=== PATIENT | male | born 1980 | race Two or more races ===

== ENCOUNTER 2017-01-25 04:33 | Emergency (ER) | payer OTHER ==
[2017-01-25] MEDS ORDERED: Ondansetron 4 MG/2 ML SDV IVPUSH ONE (04:40)
[2017-01-25] MEDS ORDERED: Sodium Chloride 0.9% 2.5 ML Syringe FLUSH PRN (04:40)
[2017-01-25] MEDS ORDERED: Sodium Chloride 0.9% 1,000 ML IV ONE (04:40)
[2017-01-25] MEDS ORDERED: Pantoprazole 40 MG Vial IVPUSH ONE (04:40)
[2017-01-25] MEDS ORDERED: Sodium Chloride 0.9% 10 ML Syringe FLUSH PRN (04:40)
--- NOTE | 2017-01-25 04:46 | EDM.PDOC ---
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 He follows with a doctor at the OR and says he is currently in the process of having a large workup to try to determine why he has persistent vomiting inability to eat very much food and inability to move his bowels without taking an enema. The patient presents via EMS not because of any of these symptomatologies because these are all chronic and old but he said that he had an episode of vomiting today where there was bright red blood and he has seen small amounts of bright red blood in his vomitus but never a large amount and this worried him. He was told that he had gastric irritation in the past and that he may have gastroparesis but from what he is saying there is been no definitive diagnosis for his chronic vomiting problem times many years. Patient here in the ED says he still has nausea and he says he is able to eat but yesterday multiple times a day because he always has vomiting and in order to keep some calories and he has to eat frequently. Again this is not new or different. Currently he is telling me he doesn't have any new abdominal pain that is different from his prior he has no chest pain or shortness of breath and his stools have not been black or bloody. Review of systems: As per history of present illness and below otherwise all systems reviewed and negative. Past medical history: As per history of present illness and as reviewed below otherwise noncontributory. Surgical history: As per history of present illness and as reviewed below otherwise noncontributory. Social history: No reported history of drug or alcohol abuse. Family history: As per history of present illness and as reviewed below otherwise noncontributory. Physical exam: Gen.: Well-developed well-nourished man who is nontoxic and speaking clearly in the ED. Vital signs are noted by me. HEENT: Atraumatic, normocephalic, pupils reactive, negative for conjunctival pallor or scleral icterus, mucous membranes moist, throat clear, neck supple, nontender, trachea midline. Lungs: Clear to auscultation, breath sounds equal bilaterally, chest nontender. Heart: S1S2, regular rate and rhythm no overt murmurs Abdomen: Soft, nondistended, no sounds are slightly hypoactive and there is some diffuse upper abdominal tenderness and voluntary guarding without involuntary guarding or rebound. Negative for masses or hepatosplenomegaly. Pelvis: Stable nontender. Genitourinary: Deferred. Rectal: Deferred. Extremities: Atraumatic, negative for cords or calf pain. Neurovascular unremarkable. Neuro: Awake, alert, oriented. . Motor and sensory are at baseline for this patient for his conversation with me Exam nonfocal. Diagnostics: CBC CMP INR amylase lipase abdominal x-rays Therapeutics: IV ,IV fluids Zofran and Protonix 0500: Case is endorsed to Dr. Alcantara to follow-up TESTING results and reevaluate the patient for disposition. Impression: Chronic history of vomiting with hemetemesis Definitive disposition and diagnosis as appropriate pending reevaluation and review of above. - Related Data Allergies Allergy/AdvReac Type Severity Reaction Status Date / Time acetaminophen [From Tylenol] Allergy gastric Verified 03/15/15 09:46 upset adhesive Allergy Blisters Verified 01/25/17 04:53 fentanyl Allergy "skin Verified 03/15/15 09:46 bleeds" ibuprofen Allergy "skin Verified 03/15/15 09:46 bleeds" morphine Allergy gastric Verified 03/15/15 09:46 upset NSAIDS (Non-Steroidal Allergy Abdominal Verified 01/25/17 04:44 Anti-Inflamma Pain Home Meds: Home Meds Cyclobenzaprine [Flexeril] 10 mg PO TID 03/15/15 [History] Pantoprazole Sodium 40 mg PO BID 03/15/15 [History] oxyCODONE 20 mg PO Q4HR PRN 03/15/15 [History] Lubiprostone [Amitiza] 0 mg PO DAILY 05/13/15 [History] Past Medical History HEENT History: Reports: Impaired Vision Other HEENT History: wears glasses, has upper bridge Cardiovascular History: Reports: None Respiratory History: Reports: None Gastrointestinal History: Reports: GERD, Other (See Below) Other Gastrointestinal History: gastroparesis Genitourinary History: Reports: None Musculoskeletal History: Reports: Arthritis, Back Pain, Chronic, Fracture, Fibromyalgia Other Musculoskeletal History: 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; rhabdomyolysis; muscular atrophy; sacroilitis; "MBS (thoracic)" Neurological History: Reports: Headaches, Chronic, Other (See Below) Other Neuro History: 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", "full body neuropathy" Psychiatric History: Reports: Bipolar, Depression Other Psychiatric History: bipolar and major depressive disorder Endocrine/Metabolic History: Reports: Other (See Below) Other Endocrine/Metabolic History: states has hypothyroidism as a child but outgrew it Hematologic History: Reports: None Immunologic History: Reports: None Oncologic (Cancer) History: Reports: None Dermatologic History: Reports: None - Past Surgical History HEENT Surgical History: Reports: Oral Surgery Musculoskeletal Surgical History: Reports: Carpal Tunnel, Other (See Below) Social & Family History - Tobacco Use Smoking Status *Q: Former Smoker Years of Tobacco use: 23 Used Tobacco, but Quit: Yes - Recreational Drug Use Recreational Drug Use: No Drug Use in Last 12 Months: No ED ROS GENERAL - Review of Systems Review Of Systems: ROS reveals no pertinent complaints other than HPI. ED EXAM, GENERAL - Physical Exam Exam: See Below (See dictation) Course - Vital Signs Last Recorded V/S: Last Vital Signs Temp 97.8 F 01/25/17 07:33 Pulse 80 01/25/17 07:33 Resp 16 01/25/17 07:33 BP 121/91 H 01/25/17 07:33 Pulse Ox 97 01/25/17 07:33 - Orders/Labs/Meds Orders: Active Orders 24 hr Category Date Time Status Abdomen Pelvis w Cont [CT] Stat Exams 01/25/17 05:13 Taken Sodium Chloride 0.9% [Saline Flush] Med 01/25/17 04:40 Active 10 ml FLUSH ASDIRECTED PRN Sodium Chloride 0.9% [Saline Flush] Med 01/25/17 04:40 Active 2.5 ml FLUSH ASDIRECTED PRN Saline Lock Insert [OM.PC] Stat Oth 01/25/17 04:40 Ordered Medication Orders Sodium Chloride (Saline Flush) 10 ml FLUSH ASDIRECTED PRN PRN Reason: Keep Vein Open Last Admin: 01/25/17 04:52 Dose: 10 ml Sodium Chloride (Saline Flush) 2.5 ml FLUSH ASDIRECTED PRN PRN Reason: Keep Vein Open Last Admin: 01/25/17 04:52 Dose: 2.5 ml Labs: Laboratory Tests 01/25/17 01/25/17 01/25/17 Range/Units 04:59 04:59 04:59 WBC 11.01 H (4.0-11.0) K/uL RBC 4.87 (4.50-5.90) M/uL Hgb 13.1 (13.0-17.0) g/dL Hct 38.5 (38.0-50.0) % MCV 79.1 L (80.0-98.0) fL MCH 26.9 L (27.0-32.0) pg MCHC 34.0 (31.0-37.0) g/dL RDW Std Deviation 38.3 (28.0-62.0) fl RDW Coeff of Jamey 14 (11.0-15.0) % Plt Count 255 (150-400) K/uL MPV 9.80 (7.40-12.00) fL Neut % (Auto) 39.2 L (48.0-80.0) % Lymph % (Auto) 51.7 H (16.0-40.0) % [place] % (Auto) 6.1 (0.0-15.0) % Eos % (Auto) 2.5 (0.0-7.0) % Baso % (Auto) 0.5 (0.0-1.5) % Neut # (Auto) 4.3 (1.4-5.7) K/uL Lymph # (Auto) 5.7 H (0.6-2.4) K/uL [place] # (Auto) 0.7 (0.0-0.8) K/uL Eos # (Auto) 0.3 (0.0-0.7) K/uL Baso # (Auto) 0.1 (0.0-0.1) K/uL Nucleated RBC % 0.0 /100WBC Nucleated RBCs # 0 K/uL INR 0.98 (0.86-1.11) Sodium 141 (136-146) mmol/L Potassium 3.7 (3.5-5.1) mmol/L Chloride 107 (98-110) mmol/L Carbon Dioxide 24 (21-31) mmol/L BUN 11 (6.0-23.0) mg/dL Creatinine 1.1 (0.6-1.5) mg/dL Est Cr Clr Drug Dosing 96.98 mL/min Estimated GFR (MDRD) > 60.0 ml/min Glucose 91 (60-110) mg/dL Calcium 9.6 (8.8-10.8) mg/dL Total Bilirubin 0.4 (0.1-1.5) mg/dL AST 32 (5-40) IU/L ALT 44 (8-54) IU/L Alkaline Phosphatase 68 (40-150) Total Protein 7.7 (6.0-8.0) g/dL Albumin 4.4 (3.5-5.0) g/dL Globulin 3.3 (2.0-3.5) g/dL Albumin/Globulin Ratio 1.3 (1.3-2.8) Amylase 114 H (10-90) U/L Lipase 11 (7-80) U/L Urine Color Urine Appearance Urine pH (5.0-8.0) Ur Specific [place] (1.001-1.035) Urine Protein (NEGATIVE) mg/dL Urine Glucose (UA) (NEGATIVE) mg/dL Urine Ketones (NEGATIVE) mg/dL Urine Occult Blood (NEGATIVE) Urine Nitrite (NEGATIVE) Urine Bilirubin (NEGATIVE) Urine Urobilinogen (<2.0) EU/dL Ur Leukocyte Esterase (NEGATIVE) Urine RBC (0-2/HPF) Urine WBC (0-5/HPF) Ur Epithelial Cells (NONE-FEW) Urine Bacteria (NEGATIVE) Blood Type Antibody Screen 01/25/17 01/25/17 Range/Units 04:59 07:26 WBC (4.0-11.0) K/uL RBC (4.50-5.90) M/uL Hgb (13.0-17.0) g/dL Hct (38.0-50.0) % MCV (80.0-98.0) fL MCH (27.0-32.0) pg MCHC (31.0-37.0) g/dL RDW Std Deviation (28.0-62.0) fl RDW Coeff of Jamey (11.0-15.0) % Plt Count (150-400) K/uL MPV (7.40-12.00) fL Neut % (Auto) (48.0-80.0) % Lymph % (Auto) (16.0-40.0) % [place] % (Auto) (0.0-15.0) % Eos % (Auto) (0.0-7.0) % Baso % (Auto) (0.0-1.5) % Neut # (Auto) (1.4-5.7) K/uL Lymph # (Auto) (0.6-2.4) K/uL [place] # (Auto) (0.0-0.8) K/uL Eos # (Auto) (0.0-0.7) K/uL Baso # (Auto) (0.0-0.1) K/uL Nucleated RBC % /100WBC Nucleated RBCs # K/uL INR (0.86-1.11) Sodium (136-146) mmol/L Potassium (3.5-5.1) mmol/L Chloride (98-110) mmol/L Carbon Dioxide (21-31) mmol/L BUN (6.0-23.0) mg/dL Creatinine (0.6-1.5) mg/dL Est Cr Clr Drug Dosing mL/min Estimated GFR (MDRD) ml/min Glucose (60-110) mg/dL Calcium (8.8-10.8) mg/dL Total Bilirubin (0.1-1.5) mg/dL AST (5-40) IU/L ALT (8-54) IU/L Alkaline Phosphatase (40-150) Total Protein (6.0-8.0) g/dL Albumin (3.5-5.0) g/dL Globulin (2.0-3.5) g/dL Albumin/Globulin Ratio (1.3-2.8) Amylase (10-90) U/L Lipase (7-80) U/L Urine Color YELLOW Urine Appearance CLEAR Urine pH 7.5 (5.0-8.0) Ur Specific [place] <= 1.005 (1.001-1.035) Urine Protein NEGATIVE (NEGATIVE) mg/dL Urine Glucose (UA) NEGATIVE (NEGATIVE) mg/dL Urine Ketones NEGATIVE (NEGATIVE) mg/dL Urine Occult Blood NEGATIVE (NEGATIVE) Urine Nitrite NEGATIVE (NEGATIVE) Urine Bilirubin NEGATIVE (NEGATIVE) Urine Urobilinogen 0.2 (<2.0) EU/dL Ur Leukocyte Esterase NEGATIVE (NEGATIVE) Urine RBC 0-1 (0-2/HPF) Urine WBC 0-1 (0-5/HPF) Ur Epithelial Cells RARE (NONE-FEW) Urine Bacteria RARE (NEGATIVE) Blood Type B POSITIVE Antibody Screen NEGATIVE Meds: Medications Generic Name Dose Route Start Last Admin Trade Name Freq PRN Reason Stop Dose Admin Sodium Chloride 10 ml 01/25/17 04:40 01/25/17 04:52 Saline Flush FLUSH 10 ml ASDIRECTED PRN Administration Keep Vein Open Sodium Chloride 2.5 ml 01/25/17 04:40 01/25/17 04:52 Saline Flush FLUSH 2.5 ml ASDIRECTED PRN Administration Keep Vein Open Discontinued Medications Generic Name Dose Route Start Last Admin Trade Name Freq PRN Reason Stop Dose Admin Hydromorphone HCl 1 mg 01/25/17 05:02 01/25/17 05:18 Dilaudid IM 01/25/17 05:03 Not Given ONETIME ONE Hydromorphone HCl 1 mg 01/25/17 05:02 01/25/17 05:18 Dilaudid IVPUSH 01/25/17 05:03 1 mg ONETIME ONE Administration Sodium Chloride 1,000 mls @ 999 mls/hr 01/25/17 04:40 01/25/17 04:52 Normal Saline IV 01/25/17 05:40 999 mls/hr STAT ONE Administration Iopamidol 100 ml 01/25/17 05:43 01/25/17 05:44 Isovue Multipack-370 (76%) IVPUSH 01/25/17 05:44 100 ml ONETIME STA Administration Ondansetron HCl 4 mg 01/25/17 04:40 01/25/17 04:53 Zofran IVPUSH 01/25/17 04:41 4 mg ONETIME ONE Administration Pantoprazole Sodium 80 mg 01/25/17 04:40 01/25/17 04:54 Protonix Iv IVPUSH 01/25/17 04:41 80 mg .BOLUS ONE Administration Departure - Departure Disposition: Home, Self-Care 01 Clinical Impression: Vomiting - Discharge Information Referrals: PCP,None [Primary Care Provider] - Forms: ED Department Discharge Additional Instructions: Zofran 8 mg ODT by mouth every 8 when necessary #30 no refill Continue current home medications Return if symptoms persist or worsen or new concerning symptoms develop Follow-up with OB as scheduled sooner as needed The following information is given to patients seen in the emergency department who are being discharged to home. This information is to outline your options for follow-up care. We provide all patients seen in our emergency department with a follow-up referral. The need for follow-up, as well as the timing and circumstances, are variable depending upon the specifics of your emergency department visit. If you don't have a primary care physician on staff, we will provide you with a referral. We always advise you to contact your personal physician following an emergency department visit to inform them of the circumstance of the visit and for follow-up with them and/or the need for any referrals to a consulting specialist. The emergency department will also refer you to a specialist when appropriate. This referral assures that you have the opportunity for follow-up care with a specialist. All of these measure are taken in an effort to provide you with optimal care, which includes your follow-up. Under all circumstances we always encourage you to contact your private physician who remains a resource for coordinating your care. When calling for follow-up care, please make the office aware that this follow-up is from your recent emergency room visit. If for any reason you are refused follow-up, please contact the [facility] emergency department at and asked to speak to the emergency department charge nurse. - My Orders Last 24 Hours: My Active Orders 01/25/17 05:13 Abdomen Pelvis w Cont [CT] Stat - Assessment/Plan Last 24 Hours: My Active Orders 01/25/17 05:13 Abdomen Pelvis w Cont [CT] Stat <Lee Alcantara - Last Filed: 01/25/17 08:09> ED HPI GENERAL MEDICAL PROBLEM - History of Present Illness INITIAL COMMENTS - FREE TEXT/NARRATIVE: I have seen and Examined the patient and agree with the findings above and history as provided by the patient is consistent with Dr. Bolivar's history. Patient has no fever nausea vomiting diarrhea constipation chest pain shortness breath headache dizziness palpitation no bowel or urine symptoms at this time after prolonged stay in the ER for evaluation. The patient refuses guaiac testing to confirm if there is any GI bleeding. He is offered admission for observation and refuses stating [facility], outside of this he is fairly agreeable and cooperative and is non-confrontational and in no distress HEENT NCAT PERRLA EOMI nares patent oropharynx clear neck supple no meningeal sign Chest clear throughout no wheeze or crackle CV regular rate and rhythm Abdomen soft nontender nondistended bowel sounds in all 4 quadrants Extremities full range of motion strength 5 out of 5 no edema, there is some slight wasting to the right lower extremity from the knee to the ankle compared to the left this is consistent with his chronic 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 The emergency room Patient is asymptomatic Chronic history of baseline Plan Again patient offered admission for observation and refuses stating he'll follow with [facility] Patient has refused rectal examination for guaiac testing In lieu of this return if symptoms persist or worsen or new concerning symptoms develop [facility] as scheduled sooner as needed Departure - Departure Time of Disposition: 08:09 Condition: Good
[2017-01-25] MEDS ORDERED: HYDROmorphone 1 MG/ML Syringe IVPUSH ONE (05:02)
[2017-01-25] MEDS: HYDROmorphone 1 MG/ML Syringe IM ONE ×2 (05:17→05:18)
[2017-01-25 05:32] LABS: CHLORIDE,CL 107 mmol/L (98-110); SODIUM,NA 141 mmol/L (136-146)
[2017-01-25] MEDS ORDERED: Iopamidol 755 MG/ML 500 ML Multipack Bottle IVPUSH STA (05:43)
[2017-01-25 07:33] VITALS: BP 121/91
--- NOTE | 2017-01-25 15:17 | CT ---
EXAM DATE: 01/25/17 PATIENT'S AGE: 36 Patient: JENNYFER ANDINO Facility: [place], [place] Site . Site : 1980 Study: CT Abdomen/Pelvis [id number] 6:09:41 AM Ordering Physician: Amauri Leong Final Report: HISTORY: Abdominal pain, hematemesis. TECHNIQUE: Intravenous contrast enhanced CT of the abdomen and pelvis. 100 mL of Isovue- 370 intravenous contrast administered. COMPARISON: 01/28/2016. FINDINGS: There is no focal liver parenchymal abnormality. No biliary ductal dilatation. Gallbladder does not appear overly distended. Spleen and adrenal glands are normal. There is no focal pancreatic abnormality or acute peripancreatic inflammatory change. Symmetric nephrograms. No renal mass or hydronephrosis. Urinary bladder is contracted and not well evaluated by CT. - Though not optimally distended and not optimally evaluated by CT, the distal esophagus and stomach are grossly unremarkable. There are no dilated small bowel loops. No appendicitis. No diverticulitis or colitis. No abdominal pelvic fluid collection. No free air. Small mesenteric lymph nodes are not technically enlarged by imaging criteria and likely reactive. No abdominal aortic aneurysm. Mesenteric and renal vasculature appears patent. No inguinal hernia. Prostatic calcifications likely postinflammatory. - Findings of chronic sacroiliitis with areas of focal ankylosis across sacroiliac joints erosive change as before. No change in slight anterior wedging of T12. - No consolidation within lung bases or pleural effusion. IMPRESSION: 1. No specific identified cause of the patient`s acute symptoms. 2. No bowel obstruction, appendicitis or diverticulitis. 3. Findings of chronic bilateral sacroiliitis as before with focal areas of ankylosis and erosive change. Dictated by Alberto Fitch MD @ 01/25/2017 6:42:05 AM Dictated by: Alberto Fitch MD @ 01/25/2017 06:42:25 (Electronic Signature) Report Signed by Proxy. MATT
== END 2017-01-25 08:30 | disposition home or self-care (01) ==
LOC: MW.ED 04:33
DX: K92.0 Hematemesis (principal); Z88.6 Allergy status to analgesic agent; Z88.5 Allergy status to narcotic agent; Z88.8 Allergy status to other drugs, medicaments and biological substances; Z79.899 Other long term (current) drug therapy; Z87.891 Personal history of nicotine dependence
CPT/HCPCS: 36415; 74177; 80053; 81001; 82150; 83690; 85025; 85610; 86850; 86900; 86901; 96361; 96374; 96375; 99285; C9113; J1170; J2405; J7040; Q9967; 99283

== ENCOUNTER 2018-11-02 11:56 | Emergency (ER) | payer OTHER ==
[2018-11-02] MEDS ORDERED: Sodium Chloride 0.9% 2.5 ML Syringe FLUSH PRN (12:01)
[2018-11-02] MEDS ORDERED: Sodium Chloride 0.9% 10 ML Syringe FLUSH PRN (12:01)
[2018-11-02] MEDS ORDERED: Sodium Chloride 0.9% 1,000 ML IV ONE (12:42)
[2018-11-02 12:50] LABS: BLOOD UREA NITROGEN,BUN 19 mg/dL (7.0-18.0); CHLORIDE,CL 104 mmol/L (98-107); GLUCOSE RANDOM 106 mg/dL (74-106); POTASSIUM,K 3.9 mmol/L (3.5-5.1); SODIUM,NA 141 mmol/L (136-148)
--- NOTE | 2018-11-02 13:13 | EDM.PDOC ---
ED HPI GENERAL MEDICAL PROBLEM - General Chief Complaint: General Stated Complaint: SOB Time Seen by Provider: 11/02/18 11:57 Source of Information: Reports: Patient History Limitations: Reports: No Limitations - History of Present Illness INITIAL COMMENTS - FREE TEXT/NARRATIVE: HISTORY AND PHYSICAL: History of present illness: Patient is a 38-year-old male presents to the ED today with multiple complaints. Patient states his main complaint is that he feels "out of it" and confused. Patient states this is worse if he is walking across the room and better with rest. Patient is also concerned because he has had some weight loss and is concerned about his percent on the fat. Patient states that he drinks of the same coffee cup and recently found that it has more of the neck and has been drinking out of this for a year so thinks that he is sick due to the mold in his coffee cup. Patient states he does feel slightly short of breath on exertion but does not feel short of breath at rest. Patient states he was exposed to "a bunch of chemicals "in for so has a bunch of neurological damage as well as other health issues from it. Patient does complain of being constipated and having to use enemas to go to the bathroom. Patient states this symptom has been ongoing for about a year. Patient states he also feels more bloated than usual. Patient denies fever, chills, chest pain, or cough. Denies headache, neck stiff ness, change in vision, syncope, or near syncope. Denies nausea, vomiting, abdominal pain, or dysuria. Has not noted any blood in urine or stool. Review of systems: As per history of present illness and below otherwise all systems reviewed and negative. Past medical history: As per history of present illness and as reviewed below otherwise noncontributory. Surgical history: As per history of present illness and as reviewed below otherwise noncontributory. Social history: See social history for further information Family history: As per history of present illness and as reviewed below otherwise noncontributory. Physical exam: General: Patient is alert, oriented, and in no acute distress. Patient sitting comfortably on exam table but anxious appearing and pressured speech. HEENT: Atraumatic, normocephalic, pupils equal and reactive bilaterally, negative for conjunctival pallor or scleral icterus, mucous membranes moist, TMs normal bilaterally, throat clear, neck supple, nontender, trachea midline. No drooling or trismus noted. No meningeal signs. No hot potato voice noted. Lungs: Clear to auscultation, breath sounds equal bilaterally, chest nontender. Heart: S1S2, regular rate and rhythm without overt murmur Abdomen: Thin, soft, nondistended, nontender. Negative for masses or hepatosplenomegaly. Negative for costovertebral tenderness. Pelvis: Stable nontender. Genitourinary: Deferred. Rectal: Deferred. Skin: Intact, warm, dry. No lesions or rashes noted. Extremities: Atraumatic, negative for cords or calf pain. Neurovascular unremarkable. Neuro: Awake, alert, oriented. Cranial nerves II through XII unremarkable. Cerebellum unremarkable. Motor and sensory unremarkable throughout. Exam nonfocal. Notes: Dr. Anderson directly involved in patient care. Patient placed on expedited follow up with PCP. Voices understanding and is agreeable to plan of care. Denies any further questions or concerns at this time. Diagnostics: CBC, CMP, UA, EKG, chest x-ray, head CT, urine drug screen, troponin, lactate, blood cultures x 2 Therapeutics: saline Prescription: None Impression: H/O altered mental status Leukocytosis Plan: 1. You can alternate ibuprofen and Tylenol as directed for pain and discomfort. 2. Follow-up with your primary care provider as discussed. Return to the ED as needed and as discussed. Definitive disposition and diagnosis as appropriate pending reevaluation and review of above. - Related Data Allergies Allergy/AdvReac Type Severity Reaction Status Date / Time acetaminophen [From Tylenol] Allergy gastric Verified 11/02/18 12:02 upset adhesive Allergy Blisters Verified 11/02/18 12:02 fentanyl Allergy "skin Verified 11/02/18 12:02 bleeds" ibuprofen Allergy "skin Verified 11/02/18 12:02 bleeds" morphine Allergy gastric Verified 11/02/18 12:02 upset NSAIDS (Non-Steroidal Allergy Abdominal Verified 11/02/18 12:02 Anti-Inflamma Pain Home Meds: Home Meds Cyclobenzaprine [Flexeril] 10 mg PO TID PRN 11/02/18 [History] Gabapentin [Neurontin] 0.5 tab PO TID 11/02/18 [History] Mirtazapine 1.5 tab PO BEDTIME 11/02/18 [History] Nortriptyline HCl [Pamelor] 10 mg PO BEDTIME 11/02/18 [History] oxyCODONE HCl [Oxycodone HCl] 1 tab PO QID PRN 11/02/18 [History] Past Medical History HEENT History: Reports: Impaired Vision Other HEENT History: wears glasses, has upper bridge Cardiovascular History: Reports: None Respiratory History: Reports: None Gastrointestinal History: Reports: GERD, Other (See Below) Other Gastrointestinal History: gastroparesis, partial colon paralysis, stomach tears Genitourinary History: Reports: None Musculoskeletal History: Reports: Arthritis, Back Pain, Chronic, Fracture, Fibromyalgia Other Musculoskeletal History: 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; rhabdomyolysis; muscular atrophy; sacroilitis; "MBS (thoracic)" Neurological History: Reports: Headaches, Chronic, Other (See Below) Other Neuro History: 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", "full body neuropathy" Psychiatric History: Reports: Bipolar, Depression Other Psychiatric History: bipolar and major depressive disorder Endocrine/Metabolic History: Reports: Other (See Below) Other Endocrine/Metabolic History: states has hypothyroidism as a child but outgrew it Hematologic History: Reports: None Immunologic History: Reports: None Oncologic (Cancer) History: Reports: None Dermatologic History: Reports: None - Infectious Disease History Infectious Disease History: Reports: Chicken Pox - Past Surgical History Head Surgeries/Procedures: Reports: None HEENT Surgical History: Reports: Oral Surgery Other HEENT Surgeries/Procedures: neck GI Surgical History: Reports: None Neurological Surgical History: Reports: None Musculoskeletal Surgical History: Reports: Carpal Tunnel, Other (See Below) Social & Family History - Family History Family Medical History: Noncontributory - Tobacco Use Smoking Status *Q: Never Smoker - Caffeine Use Caffeine Use: Reports: Coffee, Energy Drinks, Soda - Recreational Drug Use Recreational Drug Use: No ED ROS GENERAL - Review of Systems Review Of Systems: ROS reveals no pertinent complaints other than HPI. ED EXAM, GENERAL - Physical Exam Exam: See Below (see dictation) Course - Vital Signs Last Recorded V/S: Last Vital Signs Temp 97.0 F 11/02/18 11:58 Pulse 102 H 11/02/18 11:58 Resp 18 11/02/18 11:58 BP 122/74 11/02/18 12:15 Pulse Ox 97 11/02/18 11:58 - Orders/Labs/Meds Orders: Active Orders 24 hr Category Date Time Status Communication Order [RC] STAT Care 11/02/18 14:27 Ordered EKG Documentation Completion [RC] STAT Care 11/02/18 12:01 Active CULTURE BLOOD [BC] Stat Lab 11/02/18 13:00 Received CULTURE BLOOD [BC] Stat Lab 11/02/18 13:12 Results Sodium Chloride 0.9% [Saline Flush] Med 11/02/18 12:01 Active 10 ml FLUSH ASDIRECTED PRN Sodium Chloride 0.9% [Saline Flush] Med 11/02/18 12:01 Active 2.5 ml FLUSH ASDIRECTED PRN Blood Culture x2 Reflex Set [OM.PC] Stat Oth 11/02/18 12:43 Ordered Saline Lock Insert [OM.PC] Stat Ot 11/02/18 12:01 Ordered Medication Orders Sodium Chloride (Saline Flush) 10 ml FLUSH ASDIRECTED PRN PRN Reason: Keep Vein Open Sodium Chloride (Saline Flush) 2.5 ml FLUSH ASDIRECTED PRN PRN Reason: Keep Vein Open Labs: Laboratory Tests 11/02/18 11/02/18 11/02/18 Range/Units 12:17 12:17 12:21 WBC 16.62 H (4.0-11.0) K/uL RBC 4.83 (4.50-5.90) M/uL Hgb 12.5 L (13.0-17.0) g/dL Hct 38.2 (38.0-50.0) % MCV 79.1 L (80.0-98.0) fL MCH 25.9 L (27.0-32.0) pg MCHC 32.7 (31.0-37.0) g/dL RDW Std Deviation 44.5 (28.0-62.0) fl RDW Coeff of Jamey 15 (11.0-15.0) % Plt Count 352 (150-400) K/uL MPV 10.10 (7.40-12.00) fL Neut % (Auto) 78.7 (48.0-80.0) % Lymph % (Auto) 15.0 L (16.0-40.0) % [place] % (Auto) 5.6 (0.0-15.0) % Eos % (Auto) 0.4 (0.0-7.0) % Baso % (Auto) 0.3 (0.0-1.5) % Neut # (Auto) 13.1 H (1.4-5.7) K/uL Lymph # (Auto) 2.5 H (0.6-2.4) K/uL [place] # (Auto) 0.9 H (0.0-0.8) K/uL Eos # (Auto) 0.1 (0.0-0.7) K/uL Baso # (Auto) 0.1 (0.0-0.1) K/uL Nucleated RBC % 0.0 /100WBC Nucleated RBCs # 0 K/uL Lactate (0.20-2.00) mmol/L Sodium 141 (136-148) mmol/L Potassium 3.9 (3.5-5.1) mmol/L Chloride 104 (98-107) mmol/L Carbon Dioxide 26.0 (21.0-32.0) mmol/L BUN 19 H (7.0-18.0) mg/dL Creatinine 1.0 (0.8-1.3) mg/dL Est Cr Clr Drug Dosing 94.72 mL/min Estimated GFR (MDRD) > 60.0 ml/min Glucose 106 (74-106) mg/dL Calcium 9.2 (8.5-10.1) mg/dL Total Bilirubin 0.3 (0.2-1.0) mg/dL AST 52 H (15-37) IU/L ALT 54 (14-63) IU/L Alkaline Phosphatase 129 H (46-116) U/L Troponin I < 0.050 (0.000-0.056) ng/mL Total Protein 8.6 H (6.4-8.2) g/dL Albumin 3.8 (3.4-5.0) g/dL Globulin 4.8 H (2.6-4.0) g/dL Albumin/Globulin Ratio 0.8 L (0.9-1.6) Urine Color YELLOW Urine Appearance CLEAR Urine pH 6.0 (5.0-8.0) Ur Specific [place] 1.025 (1.001-1.035) Urine Protein NEGATIVE (NEGATIVE) mg/dL Urine Glucose (UA) NEGATIVE (NEGATIVE) mg/dL Urine Ketones NEGATIVE (NEGATIVE) mg/dL Urine Occult Blood NEGATIVE (NEGATIVE) Urine Nitrite NEGATIVE (NEGATIVE) Urine Bilirubin NEGATIVE (NEGATIVE) Urine Urobilinogen 0.2 (<2.0) EU/dL Ur Leukocyte Esterase NEGATIVE (NEGATIVE) Urine Opiates Screen (NEGATIVE) Ur Oxycodone Screen (NEGATIVE) Urine Methadone Screen (NEGATIVE) Ur Barbiturates Screen (NEGATIVE) Ur Phencyclidine Scrn (NEGATIVE) Ur Amphetamine Screen (NEGATIVE) U Methamphetamines Scrn (NEGATIVE) U Benzodiazepines Scrn (NEGATIVE) U Cocaine Metab Screen (NEGATIVE) U Marijuana (THC) Screen (NEGATIVE) 11/02/18 11/02/18 Range/Units 12:21 13:00 WBC (4.0-11.0) K/uL RBC (4.50-5.90) M/uL Hgb (13.0-17.0) g/dL Hct (38.0-50.0) % MCV (80.0-98.0) fL MCH (27.0-32.0) pg MCHC (31.0-37.0) g/dL RDW Std Deviation (28.0-62.0) fl RDW Coeff of Jamey (11.0-15.0) % Plt Count (150-400) K/uL MPV (7.40-12.00) fL Neut % (Auto) (48.0-80.0) % Lymph % (Auto) (16.0-40.0) % [place] % (Auto) (0.0-15.0) % Eos % (Auto) (0.0-7.0) % Baso % (Auto) (0.0-1.5) % Neut # (Auto) (1.4-5.7) K/uL Lymph # (Auto) (0.6-2.4) K/uL [place] # (Auto) (0.0-0.8) K/uL Eos # (Auto) (0.0-0.7) K/uL Baso # (Auto) (0.0-0.1) K/uL Nucleated RBC % /100WBC Nucleated RBCs # K/uL Lactate 1.0 (0.20-2.00) mmol/L Sodium (136-148) mmol/L Potassium (3.5-5.1) mmol/L Chloride (98-107) mmol/L Carbon Dioxide (21.0-32.0) mmol/L BUN (7.0-18.0) mg/dL Creatinine (0.8-1.3) mg/dL Est Cr Clr Drug Dosing mL/min Estimated GFR (MDRD) ml/min Glucose (74-106) mg/dL Calcium (8.5-10.1) mg/dL Total Bilirubin (0.2-1.0) mg/dL AST (15-37) IU/L ALT (14-63) IU/L Alkaline Phosphatase (46-116) U/L Troponin I (0.000-0.056) ng/mL Total Protein (6.4-8.2) g/dL Albumin (3.4-5.0) g/dL Globulin (2.6-4.0) g/dL Albumin/Globulin Ratio (0.9-1.6) Urine Color Urine Appearance Urine pH (5.0-8.0) Ur Specific [place] (1.001-1.035) Urine Protein (NEGATIVE) mg/dL Urine Glucose (UA) (NEGATIVE) mg/dL Urine Ketones (NEGATIVE) mg/dL Urine Occult Blood (NEGATIVE) Urine Nitrite (NEGATIVE) Urine Bilirubin (NEGATIVE) Urine Urobilinogen (<2.0) EU/dL Ur Leukocyte Esterase (NEGATIVE) Urine Opiates Screen NEGATIVE (NEGATIVE) Ur Oxycodone Screen POSITIVE (NEGATIVE) Urine Methadone Screen NEGATIVE (NEGATIVE) Ur Barbiturates Screen NEGATIVE (NEGATIVE) Ur Phencyclidine Scrn NEGATIVE (NEGATIVE) Ur Amphetamine Screen NEGATIVE (NEGATIVE) U Methamphetamines Scrn NEGATIVE (NEGATIVE) U Benzodiazepines Scrn NEGATIVE (NEGATIVE) U Cocaine Metab Screen NEGATIVE (NEGATIVE) U Marijuana (THC) Screen NEGATIVE (NEGATIVE) Meds: Medications Generic Name Dose Route Start Last Admin Trade Name Freq PRN Reason Stop Dose Admin Sodium Chloride 10 ml 11/02/18 12:01 Saline Flush FLUSH ASDIRECTED PRN Keep Vein Open Sodium Chloride 2.5 ml 11/02/18 12:01 Saline Flush FLUSH ASDIRECTED PRN Keep Vein Open Discontinued Medications Generic Name Dose Route Start Last Admin Trade Name Freq PRN Reason Stop Dose Admin Sodium Chloride 1,000 mls @ 999 mls/hr 11/02/18 12:42 11/02/18 12:56 Normal Saline IV 11/02/18 13:42 999 mls/hr STAT ONE Administration Departure - Departure Time of Disposition: 14:28 Disposition: Home, Self-Care 01 Clinical Impression: History of confusion Leukocytosis Qualifiers: Leukocytosis type: unspecified Qualified Code(s): D72.829 - Elevated white blood cell count, unspecified - Discharge Information Referrals: PCP,Unknown [Primary Care Provider] - Forms: ED Department Discharge Additional Instructions: The following information is given to patients seen in the emergency department who are being discharged to home. This information is to outline your options for follow-up care. We provide all patients seen in our emergency department with a follow-up referral. The need for follow-up, as well as the timing and circumstances, are variable depending upon the specifics of your emergency department visit. If you don't have a primary care physician on staff, we will provide you with a referral. We always advise you to contact your personal physician following an emergency department visit to inform them of the circumstance of the visit and for follow-up with them and/or the need for any referrals to a consulting specialist. The emergency department will also refer you to a specialist when appropriate. This referral assures that you have the opportunity for follow-up care with a specialist. All of these measure are taken in an effort to provide you with optimal care, which includes your follow-up. Under all circumstances we always encourage you to contact your private physician who remains a resource for coordinating your care. When calling for follow-up care, please make the office aware that this follow-up is from your recent emergency room visit. If for any reason you are refused follow-up, please contact the [facility] Emergency Department at and asked to speak to the emergency department charge nurse. [facility] [address] [place] [id number] [id number] 1. You can alternate ibuprofen and Tylenol as directed for pain and discomfort. 2. Follow-up with your primary care provider as discussed. Return to the ED as needed and as discussed. - My Orders Last 24 Hours: My Active Orders 11/02/18 12:01 EKG Documentation Completion [RC] STAT Sodium Chloride 0.9% [Saline Flush] 10 ml FLUSH ASDIRECTED PRN Sodium Chloride 0.9% [Saline Flush] 2.5 ml FLUSH ASDIRECTED PRN Saline Lock Insert [OM.PC] Stat 11/02/18 12:43 Blood Culture x2 Reflex Set [OM.PC] Stat 11/02/18 13:00 CULTURE BLOOD [BC] Stat 11/02/18 13:12 CULTURE BLOOD [BC] Stat 11/02/18 14:27 Communication Order [RC] STAT - Assessment/Plan Last 24 Hours: My Active Orders 11/02/18 12:01 EKG Documentation Completion [RC] STAT Sodium Chloride 0.9% [Saline Flush] 10 ml FLUSH ASDIRECTED PRN Sodium Chloride 0.9% [Saline Flush] 2.5 ml FLUSH ASDIRECTED PRN Saline Lock Insert [OM.PC] Stat 11/02/18 12:43 Blood Culture x2 Reflex Set [OM.PC] Stat 11/02/18 13:00 CULTURE BLOOD [BC] Stat 11/02/18 13:12 CULTURE BLOOD [BC] Stat 11/02/18 14:27 Communication Order [RC] STAT
--- NOTE | 2018-11-02 14:03 | CR ---
Chest: Portable view of the chest was obtained. Comparison: No prior chest imaging. Heart size and mediastinum are normal. 5 mm nodule is noted within the right lung base. Lungs otherwise are clear. Previous cervical spine surgery is noted. Impression: 1. A 5 mm nodule within the right lung base. If patient is not a smoker, this can be ignored. If patient is a smoker, recommend noncontrast chest CT exam. 2. Nothing acute is otherwise seen on portable chest x-ray. Diagnostic code #9 MTDD
--- NOTE | 2018-11-02 14:23 | CT ---
Head CT Technique: Multiple axial sections through the brain were obtained. Intravenous contrast was not utilized. Comparison: No prior intracranial imaging is available. Findings: Ventricles along with basal cisterns and sulci over the convexities are within normal limits for the patient's age. No abnormal parenchymal densities are seen. No evidence of intracranial hemorrhage. No midline shift or mass effect is seen. Bone window settings were reviewed which shows no acute calvarial abnormality. Visualized paranasal sinuses and mastoid sinuses are clear. No acute calvarial abnormality is seen. Impression: Nothing acute is appreciated on noncontrast head CT exam. Diagnostic code #1 MTDD
[2018-11-02 15:11] VITALS: BP 110/75; PULSE 85
== END 2018-11-02 14:59 | disposition home or self-care (01) ==
LOC: MW.ED 11:56
DX: R41.82 Altered mental status, unspecified (principal); D72.829 Elevated white blood cell count, unspecified; K21.9 Gastro-esophageal reflux disease without esophagitis; M19.90 Unspecified osteoarthritis, unspecified site; F32.9 Major depressive disorder, single episode, unspecified; Z88.5 Allergy status to narcotic agent; Z88.6 Allergy status to analgesic agent; Z88.8 Allergy status to other drugs, medicaments and biological substances; Z91.048 Other nonmedicinal substance allergy status; Z79.899 Other long term (current) drug therapy
CPT/HCPCS: 36415; 70450; 71045; 80053; 80305; 81003; 83605; 84484; 85025; 87040; 93005; 96360; 99285; J7040; 99284